=== PATIENT | male | born 1995 | race Caucasian/White ===

== ENCOUNTER 2023-07-22 18:11 | Emergency (ER) | payer MEDICAID ==
[~2023-07-22] VITALS: Ht 172.7 cm; Wt 68.0 kg
[2023-07-22 18:18] VITALS: BP 123/69; PULSE 88; RESP 20; TEMP 97.9; O2SAT 99
== END 2023-07-22 21:16 | disposition left against medical advice (07) ==
LOC: ER 18:11
DX: R51.9 Headache, unspecified (principal); Z53.21 Procedure and treatment not carried out due to patient leaving prior to being seen by health care provider

== ENCOUNTER 2023-09-13 19:12 | Emergency (ER) | payer MEDICAID ==
[~2023-09-13] VITALS: Ht 170.2 cm; Wt 59.0 kg
[2023-09-13 20:08] VITALS: BP 104/64; PULSE 79; RESP 18; TEMP 98.3; O2SAT 99
== END 2023-09-13 21:39 | disposition left against medical advice (07) ==
LOC: ER 19:23
DX: F29 Unspecified psychosis not due to a substance or known physiological condition (principal); Z53.21 Procedure and treatment not carried out due to patient leaving prior to being seen by health care provider
CPT/HCPCS: 99281

== ENCOUNTER 2023-12-21 18:27 | Emergency (ER) | payer MEDICAID ==
[~2023-12-21] VITALS: Ht 167.6 cm; Wt 64.0 kg
[2023-12-21 18:29] VITALS: BP 122/72; PULSE 68; RESP 18; TEMP 98.1; O2SAT 98
== END 2023-12-21 22:09 | disposition home or self-care (01) ==
LOC: ER 18:29
DX: R51.9 Headache, unspecified (principal); F17.200 Nicotine dependence, unspecified, uncomplicated; F19.90 Other psychoactive substance use, unspecified, uncomplicated
CPT/HCPCS: 99283

== ENCOUNTER 2024-06-11 10:41 | Emergency (ER) | payer SELFPAY ==
[~2024-06-11] VITALS: Ht 172.7 cm; Wt 64.0 kg
[2024-06-11 10:44] VITALS: O2SAT 100
[2024-06-11] MEDS: IBUPROFEN 600MG TABLET PO ONE (11:37)
[2024-06-11] MEDS: TETANUS, DIPHTHERIA, PERTUSSIS VAC/PF 0.5ML (>10YR OLD) IM ONE (14:19)
[2024-06-11] MEDS: LIDOCAINE HCL/PF 1% 10 MG/ML 5ML VIAL INFIL ONE (15:05)
[2024-06-11] MEDS: BACITRACIN ZINC OINT UDPKT TOP ONE (15:06)
[2024-06-11 15:42] VITALS: BP 117/83; PULSE 63; RESP 18; TEMP 36.89184; O2SAT 100
== END 2024-06-11 15:40 | disposition home or self-care (01) ==
LOC: ER 10:41
DX: S01.01XA Laceration without foreign body of scalp, initial encounter (principal); R51.9 Headache, unspecified; W18.39XA Other fall on same level, initial encounter; Y93.89 Activity, other specified; Y92.89 Other specified places as the place of occurrence of the external cause; Y99.8 Other external cause status
CPT/HCPCS: 70450; 90715; 12001; 90471; 99285; J3490; Z7610

== ENCOUNTER 2024-06-27 18:11 | Emergency (ER) | payer SELFPAY ==
[~2024-06-27] VITALS: Ht 170.2 cm; Wt 64.0 kg
[2024-06-27 18:14] VITALS: BP 127/75; PULSE 80; RESP 18; TEMP 98.2; O2SAT 98
== END 2024-06-28 00:13 | disposition home or self-care (01) ==
LOC: ER 18:11
DX: S01.01XD Laceration without foreign body of scalp, subsequent encounter (principal); F10.90 Alcohol use, unspecified, uncomplicated; X58.XXXD Exposure to other specified factors, subsequent encounter; Y90.9 Presence of alcohol in blood, level not specified
CPT/HCPCS: 99283; Z7610 ×2; 99281

== ENCOUNTER 2024-07-13 18:09 | Emergency (ER) | payer SELFPAY ==
[~2024-07-13] VITALS: Ht 170.2 cm; Wt 58.0 kg
[2024-07-13 18:15] VITALS: O2SAT 98
[2024-07-13 18:24] VITALS: BP 127/78; PULSE 80; RESP 16; TEMP 98.3; O2SAT 100
== END 2024-07-13 21:03 | disposition left against medical advice (07) ==
LOC: ER 18:09
DX: H92.09 Otalgia, unspecified ear (principal); Z53.21 Procedure and treatment not carried out due to patient leaving prior to being seen by health care provider

== ENCOUNTER 2024-07-15 14:18 | Emergency (ER) | payer SELFPAY ==
[~2024-07-15] VITALS: Ht 170.2 cm; Wt 59.0 kg
[2024-07-15 14:35] VITALS: O2SAT 100
[2024-07-15 14:37] VITALS: BP 161/101; PULSE 86; RESP 18; TEMP 98.8; O2SAT 98
== END 2024-07-15 19:33 | disposition left against medical advice (07) ==
LOC: ER 14:18
DX: T15.90XA Foreign body on external eye, part unspecified, unspecified eye, initial encounter (principal); Z53.21 Procedure and treatment not carried out due to patient leaving prior to being seen by health care provider

== ENCOUNTER 2024-10-19 06:41 | Emergency (ER) | payer MEDICAID ==
[~2024-10-19] VITALS: Ht 170.2 cm; Wt 57.0 kg
[2024-10-19 06:44] VITALS: TEMP 36.9; O2SAT 98
[2024-10-19 07:07] VITALS: BP 124/72; PULSE 98; RESP 14; O2SAT 100
== END 2024-10-19 07:24 | disposition home or self-care (01) ==
LOC: ER 06:41
DX: S30.843A External constriction of scrotum and testes, initial encounter (principal); X58.XXXA Exposure to other specified factors, initial encounter; Y93.89 Activity, other specified; Y92.89 Other specified places as the place of occurrence of the external cause; Y99.8 Other external cause status
CPT/HCPCS: 99283; Z7610

== ENCOUNTER 2024-11-01 20:43 | Emergency (ER) | payer MEDICAID ==
[~2024-11-01] VITALS: Ht 162.6 cm; Wt 59.0 kg
[2024-11-01 20:57] VITALS: O2SAT 100
[2024-11-01 21:43] VITALS: BP 128/80; PULSE 97; RESP 18; TEMP 36.6; O2SAT 99
== END 2024-11-01 22:22 | disposition left against medical advice (07) ==
LOC: ER 20:43
DX: M54.9 Dorsalgia, unspecified (principal); R51.9 Headache, unspecified; Z53.21 Procedure and treatment not carried out due to patient leaving prior to being seen by health care provider